=== PATIENT | female | born 1985 | race Caucasian/White ===

== ENCOUNTER 2024-01-05 19:02 | Emergency (ER) | payer OTHER, SELFPAY ==
[~2024-01-05] VITALS: Ht 182.9 cm; Wt 160.7 kg
[2024-01-05 19:02] VITALS: BP 143/86; TEMP 98.3; O2SAT 96
== END 2024-01-05 19:22 | disposition left against medical advice (07) ==
LOC: M ED 19:02
DX: Z53.21 Procedure and treatment not carried out due to patient leaving prior to being seen by health care provider (principal)